=== PATIENT | female | born 1945 | race Caucasian/White ===

== ENCOUNTER 2023-07-05 14:00 | Emergency (ER) | payer OTHER, SELFPAY ==
[2023-07-05 14:07] VITALS: BP 156/74
--- NOTE | 2023-07-05 15:35 | ED.GENMED ---
History of Present Illness
General
Chief Complaint: Dental Problem
Time Seen by Provider: 07/05/23 15:34
Travel History
Have you had any contact with someone who has COVID-19?: No
Do you have any symptoms of coronavirus? Fever > 100 degrees, chills, cough, shortness of breath, sore throat, loss of taste or smell, muscle aches, or headache?: No
History of Present Illness
History of Present Illness:
HPI: Patient was sent here by the dentist with concerns for infection. The patient has a history of C. difficile. The patient also has chronic pain issues related to fibromyalgia as well.
EXAM:
GENERAL: Well appearing in no distress, afebrile
HEENT: Moist oral mucosa, there is some vague discomfort to palpation of the lower and upper gingiva on the right side, missing cap noted, minimal anterior cervical lymphadenopathy on the right
PSYCHIATRIC: Appropriate mental status, normal insight and judgement
EXTREMITIES: Nontender, no edema, moves all extremities equally
SKIN: No rash, no lesions
ED COURSE:
3:40 PM: I initially evaluated patient
NUMBER AND COMPLEXITY OF PROBLEMS ADDRESSED AT THE ENCOUNTER
� Chronic conditions affecting care: Anxiety, in pain management/neuropathy
� Acute Exacerbation and/or Progression of Chronic Illness: This is an acute problem
� Differential Diagnosis includes: Odontogenic infection, dental abscess, very low suspicion for facial abscess, no evidence for Homero's angina based on physical examination
AMOUNT AND/OR COMPLEXITY OF DATA TO BE REVIEWED AND ANALYZED
� I performed an independent evaluation of and my interpretation is:
EKG:
CT:
X-rays:
Laboratory Studies:
Other:
� Review of other/old records: I reviewed records, the patient had physical therapy in 2021
� Clinical information was obtained by an independent historian: None needed
� Prescriptions/Medications Considered but not given:
� Further testing considered but not performed: Considered imaging however there is barely any palpable abnormality on physical examination
RISK OF COMPLICATIONS AND/OR MORBIDITY OR MORTALITY OF PATIENT MANAGEMENT
� Social determinants of health affecting care: Lives at home
� Discussion with other providers: Discussed with ID, Dr. Sosa and we agreed to have patient start vancomycin while on Augmentin and continue vancomycin for 5 days
� Escalation of care including admission/observation vs risk of discharge considered: No clear indication for imaging at this time
Past History
Past History
ED Past Medical History: Fibromyalgia, GERD, Hypercholesterolemia, Hypothyroidism, Psychiatric (Anxiety) and Other (neuropathy, C-diff, Herniated disc)
ED Past Surgical History: Gynecological (Uterine prolapse, Cystocele and rectocele with mesh), Orthopedic (Right rotator cuff surgery), Urological (Bladder surgery) and Other (Umbilical hernia, Breast reduction, Abdominoplasty)
Social History
Tobacco: Former smoker
Alcohol: Occasional
Drug: None
Personal:
Living: with family
Phy Exam
Physical Exam
Physical Exam:
See HPI
Course
Orders/Labs/Results
Orders:
Orders
07/05/23 16:00
Amoxicillin 875 mg/Clav 125 mg [Augmentin 875 mg/125 mg] 1 tablet PO NOW STA
07/05/23 16:11
Vancomycin HCl [Firvanq] 125 mg PO NOW STA
Vital Signs
Initial and Last Documented VS:
Initial Vital Signs
Temp Pulse Resp BP Pulse Ox
98.3 F 82 16 156/74 93
07/05/23 14:07 07/05/23 14:07 07/05/23 14:07 07/05/23 14:07 07/05/23 14:07
Last Documented Vital Signs
Temp Pulse Resp BP Pulse Ox
98.3 F 82 16 156/74 93
07/05/23 14:07 07/05/23 14:07 07/05/23 14:07 07/05/23 14:07 07/05/23 14:07
*Critical Care Note
Total Time (30-74mins, 75-104mins- exclusive of procedures): Not Applicable
ED Attending Note
-
Portions of this chart may have been created with voice recognition software.� Occasional wrong word or��sound alike� substitutions may have occurred due to the inherent limitations of voice recognition software.
Discharge Plan
Departure
Patient Disposition: Home (Routine Discharge)
Date of Disposition: 07/05/23
Time of Disposition: 16:09
Patient with high blood pressure during this ER visit?: Yes
Discharge Problem:
Dental infection
Instructions: Tooth Abscess (DC)
Prescriptions:
New
amoxicillin-pot clavulanate 875-125 mg tablet
1 tab PO BID Qty: 14 0RF
vancomycin 125 mg capsule
125 mg PO QID Qty: 48 0RF
No Action
clonazepam 1 MG tablet
1 mg PO BID
Patient Comments:
08/11/2021: last filled 08/01/21, 60 tabs for 30 days from [facility]
levothyroxine 88 MCG tablet
88 mcg PO DAILY
citalopram 20 MG tablet
40 mg PO HS
baclofen 10 MG tablet
10 mg PO BIDPRN PRN (Reason: spasm)
gabapentin 300 MG capsule
300 mg PO BID
morphine 15 MG tablet
15 mg PO QIDPRN PRN (Reason: moderate to severe pain)
Patient Comments:
08/11/2021: last filled 08/03/21, 28 tabs for 7 days from [facility]
estradiol [Yuvafem] 10 MCG tablet
10 mcg VAG TUTH
acetaminophen 325 MG tablet
650 mg PO Q6HPRN PRN (Reason: mild pain/ fever>100.5F) 0RF
Lactobac 2-Bifido 1-S. therm [High Potency Probiotic] 1 CAP capsule
2 cap PO DAILY 0RF
atorvastatin 10 MG tablet
10 mg PO QPM
diphenoxylate-atropine [Lomotil] 2.5-0.025 mg tablet
1 tab PO DAILY PRN (Reason: diarrhea) Qty: 10 0RF
Referrals:
Kimi Bernal CRNP [Family Provider] -
Activity Restrictions/Additional Instructions:
I did speak to infectious disease specialist. Will place you on vancomycin while you are on Augmentin and then continue the vancomycin for an additional 5 days. I sent these prescriptions to your pharmacy. Return here if worse. Follow-up with
your dentist as well. Your temperature here is normal. There is no clear indication for CT imaging or blood work at this time.
[2023-07-05 16:05] VITALS: BMI 29.2
[2023-07-05] MEDS: FIRVANQ 125 MG PO (16:20)
[2023-07-05] MEDS: AUGMENTIN 875 MG/125 MG 1 TABLET PO (16:20)
[2023-07-05 16:24] VITALS: BP 146/78
== END 2023-07-05 16:31 | disposition home or self-care (01) ==
LOC: EMR 14:00
PROVIDERS: EMERGENCY PHYSICIAN Emergency Medicine; FAMILY PHYSICIAN Nurse Practitioner
DX: K04.7 Periapical abscess without sinus (principal); R59.0 Localized enlarged lymph nodes; R03.0 Elevated blood-pressure reading, without diagnosis of hypertension; M79.7 Fibromyalgia; F41.9 Anxiety disorder, unspecified; G62.9 Polyneuropathy, unspecified; E78.00 Pure hypercholesterolemia, unspecified; E03.9 Hypothyroidism, unspecified; K21.9 Gastro-esophageal reflux disease without esophagitis; G89.29 Other chronic pain; Z87.891 Personal history of nicotine dependence
CPT/HCPCS: 99283

== ENCOUNTER → 2023-07-20 14:56 | Outpatient (REF) | payer OTHER, SELFPAY | LOC: DHCBC HW 14:56 | PROVIDERS: ATTENDING PHYSICIAN Nurse Practitioner | DX: R01.1 Cardiac murmur, unspecified (principal) | CPT/HCPCS: 93306 ==

== ENCOUNTER → 2023-10-18 13:35 | Outpatient (REF) | payer OTHER, SELFPAY | LOC: HWWDC 13:35 | PROVIDERS: ATTENDING PHYSICIAN Nurse Practitioner | DX: Z12.31 Encounter for screening mammogram for malignant neoplasm of breast (principal) | CPT/HCPCS: 77063; 77067 ==

== ENCOUNTER → 2024-04-02 14:25 | Outpatient (REF) | payer OTHER, SELFPAY | LOC: HWRAD 14:25 | PROVIDERS: ATTENDING PHYSICIAN Nurse Practitioner Adult Health; FAMILY PHYSICIAN Nurse Practitioner | DX: M51.34 Other intervertebral disc degeneration, thoracic region (principal); M50.30 Other cervical disc degeneration, unspecified cervical region | CPT/HCPCS: 72050; 72072 ==

== ENCOUNTER → 2024-09-11 09:19 | Outpatient (REF) | payer OTHER, SELFPAY | LOC: PAVMRI 09:19 | PROVIDERS: ATTENDING PHYSICIAN Orthopaedic Surgery | DX: M25.512 Pain in left shoulder (principal) | CPT/HCPCS: 73221 ==

== ENCOUNTER → 2024-10-03 12:30 | Outpatient (REF) | payer OTHER, SELFPAY ==
[2024-10-03 15:56] LABS: % Basophils 0.7 % (0-2); % Eosinophils 1.6 % (0-6); % Immature Granulocytes 0.1 % (0-0.5); % Lymphocytes 31.7 % (20.5-51.1); % Monocytes 8.2 % (1.7-9.3); % Neutrophils 57.7 % (42.2-75.2); Absolute Basophils 0.1 10^3/uL (0-0.2); Absolute Eosinophils 0.1 10^3/uL (0-0.7); Absolute Lymphocytes 2.1 10^3/uL (1.2-3.4); Absolute Monocytes 0.6 10^3/uL (0.1-0.6); Absolute Neutrophils 3.9 10^3/uL (1.4-6.5); Hematocrit 38.7 % (37.0-47.0); Hemoglobin 13.2 g/dL (12.0-16.0); Mean Corp Hgb Conc. 34.1 g/dL (33.0-37.0); Mean Corpuscular Hgb 31.3 pg (27.0-31.0); Mean Corpuscular Volume 91.7 fL (81.0-99.0); Mean Platelet Volume 10.2 fL (7.4-10.4); Nucleated Red Blood Cells % 0 %; Platelet Count 229 10^3/uL (130-400); Red Blood Cell Count 4.22 10^6/uL (4.20-5.40); Red Cell Dist. Width 13.1 % (11.5-14.5); White Blood Cell Count 6.7 10^3/uL (4.8-10.8)
[2024-10-03 16:07] LABS: Blood Urea Nitrogen 19 mg/dl (7-17); Calcium 9.7 mg/dl (8.4-10.2); Carbon Dioxide 26 mmol/L (22-30); Chloride 103 mmol/L (98-107); Glucose 123 mg/dl (70-99); Potassium 4.4 mmol/L (3.5-5.1); Sodium 140 mmol/L (135-145); eGFR > 60.00
== END ==
LOC: HWLAB 12:30
PROVIDERS: ATTENDING PHYSICIAN Specialist
DX: Z01.818 Encounter for other preprocedural examination (principal)
CPT/HCPCS: 36415; 80048; 85025; 93005

== ENCOUNTER → 2024-10-03 15:32 | Outpatient (REF) | payer OTHER, SELFPAY | LOC: RAD 15:32 | PROVIDERS: ATTENDING PHYSICIAN Nurse Practitioner Family | DX: R60.0 Localized edema (principal); M79.672 Pain in left foot | CPT/HCPCS: 73630; 93970 ==

== ENCOUNTER 2024-12-21 15:06 | Outpatient (RCR) | payer OTHER, SELFPAY | END 2024-12-21 23:59 | disposition home or self-care (01) | LOC: RPT 15:06 | PROVIDERS: ATTENDING PHYSICIAN Specialist; FAMILY PHYSICIAN Nurse Practitioner | DX: Z47.1 Aftercare following joint replacement surgery (principal); Z73.6 Limitation of activities due to disability; M25.512 Pain in left shoulder; M62.81 Muscle weakness (generalized); Z96.612 Presence of left artificial shoulder joint | CPT/HCPCS: 97010; 97110; 97112; 97140; 97161 ==

== ENCOUNTER 2025-01-29 14:01 | Outpatient (RCR) | payer OTHER, SELFPAY | END 2025-01-29 23:59 | disposition home or self-care (01) | LOC: RPT 14:01 | PROVIDERS: ATTENDING PHYSICIAN Specialist; FAMILY PHYSICIAN Nurse Practitioner | DX: Z47.1 Aftercare following joint replacement surgery (principal); Z73.6 Limitation of activities due to disability; M25.512 Pain in left shoulder; M62.81 Muscle weakness (generalized); Z96.612 Presence of left artificial shoulder joint | CPT/HCPCS: 97010; 97110; 97140 ==

== ENCOUNTER 2025-02-11 14:51 | Outpatient (RCR) | payer OTHER, SELFPAY | END 2025-02-11 23:59 | disposition home or self-care (01) | LOC: RPT 14:51 | PROVIDERS: ATTENDING PHYSICIAN Specialist; FAMILY PHYSICIAN Nurse Practitioner | DX: Z47.1 Aftercare following joint replacement surgery (principal); Z73.6 Limitation of activities due to disability; M25.512 Pain in left shoulder; M62.81 Muscle weakness (generalized); Z96.612 Presence of left artificial shoulder joint | CPT/HCPCS: 97010; 97110; 97530 ==

== ENCOUNTER → 2025-02-27 14:17 | Outpatient (REF) | payer OTHER, SELFPAY ==
[2025-02-27 17:44] LABS: Hematocrit 39.8 % (37.0-47.0); Hemoglobin 13.4 g/dL (12.0-16.0); Mean Corp Hgb Conc. 33.7 g/dL (33.0-37.0); Mean Corpuscular Volume 88.6 fL (81.0-99.0); Nucleated Red Blood Cells % 0 %; Platelet Count 242 10^3/uL (130-400); Red Cell Dist. Width 12.7 % (11.5-14.5)
[2025-02-27 18:03] LABS: C-Reactive Protein < 5.00 mg/L (0.0-10.00)
== END ==
LOC: REG 14:17
PROVIDERS: ATTENDING PHYSICIAN Physician Assistant Surgical; FAMILY PHYSICIAN Nurse Practitioner
DX: Z47.89 Encounter for other orthopedic aftercare (principal)
CPT/HCPCS: 36415; 85025; 85652; 86140

== ENCOUNTER → 2025-02-28 13:38 | Outpatient (REF) | payer OTHER, SELFPAY | LOC: HWRAD 13:38 | PROVIDERS: ATTENDING PHYSICIAN Physician Assistant Surgical | DX: Z47.89 Encounter for other orthopedic aftercare (principal); Z96.612 Presence of left artificial shoulder joint; M25.512 Pain in left shoulder | CPT/HCPCS: 73200 ==

== ENCOUNTER 2025-03-26 06:21 | Day surgery (SDC) | payer OTHER, SELFPAY ==
[2025-03-22 13:15] LABS: ALT (SGPT) 36 U/L (0-35); AST (SGOT) 24 U/L (14-36); Albumin 4.5 g/dl (3.5-5.0); Alkaline Phosphatase 151 U/L (38-126); Blood Urea Nitrogen 18 mg/dl (7-17); Calcium 9.6 mg/dl (8.4-10.2); Carbon Dioxide 30 mmol/L (22-30); Chloride 103 mmol/L (98-107); Glucose 99 mg/dl (70-99); Potassium 4.2 mmol/L (3.5-5.1); Sodium 140 mmol/L (135-145); Total Protein 7.5 g/dl (6.3-8.2); eGFR > 60.00
[2025-03-26] VITALS (8 sets, daily range): BP systolic 110–128; BP diastolic 49–92; BMI 27.9
[2025-03-26] MEDS: TYLENOL 1000 MG PO (12:22)
[2025-03-26] MEDS: CELEBREX 200 MG PO (12:22)
[2025-03-26] MEDS: NORMOSOL-R/PLASMALYTE-A 1000 IV (12:22)
[2025-03-26] MEDS: MORPHINE SULFATE 1 MG IV (14:54)
--- NOTE | 2025-03-26 15:20 | CM ---
Late Note.
CM was updated regarding this patient by PAT. CM queried [employer] regarding patient's antibiotic plan. As per [employer], they will discuss plan with patient.
== END 2025-03-26 16:07 | disposition home or self-care (01) ==
LOC: SDS 06:21
PROVIDERS: ATTENDING PHYSICIAN Specialist
DX: L72.0 Epidermal cyst (principal); L08.9 Local infection of the skin and subcutaneous tissue, unspecified; L02.818 Cutaneous abscess of other sites; Z96.612 Presence of left artificial shoulder joint
CPT/HCPCS: 11042; 20610; 10060; 36415; 80053; 87015; 87070; 87075; 87205; 88304; 93005

== ENCOUNTER 2025-05-13 06:23 | Day surgery (SDC) | payer OTHER, SELFPAY | END 2025-05-13 12:02 | disposition home or self-care (01) | LOC: GI 06:23 | PROVIDERS: ATTENDING PHYSICIAN Internal Medicine Gastroenterology | DX: Q39.9 Congenital malformation of esophagus, unspecified (principal); K44.9 Diaphragmatic hernia without obstruction or gangrene; R12 Heartburn | CPT/HCPCS: 43235; 93005 ==